=== PATIENT | male | born 1950 | race Caucasian/White ===

== ENCOUNTER 2019-02-17 11:00 | Outpatient (RCR) | payer OTHER, SELFPAY ==
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
--- NOTE | 2019-02-17 12:10 | HP.OTDCSUM ---
HP - OT D/C Summary It has been my pleasure to treat СВЕТЛАНА BARBOSA under orders from HARI CULLEN, for the diagnosis of SCI for a total of 5 visit(s). Please see the following information for a summary of their discharge status. - Objective Objective/Function: pt able to verbalize where his center of gravity is therapist assisted pt to his COG but unalble to maintain- losses COG >5 sec. with abdominal binder on. unable to flex forward and could iniate to side lean to left and min extension. (with spinal stroke pt able to initiate greater back ext.) pt required total assist to stop motion and right self. unable to initiate motion to right or left at this time. Pt dependent for functional tsf with sliding board. pt sliding board tsf of 3 for safety. pt able to sit at EOB 25min with Min A for static balance and MOD assist to correct LOB. pts forward balance MAX assist for correct balance. - Goals Patient Goals: Regain Mobility Goal:: PT will demo a increase in right Biceps 3+/5 to increase assist with mobility and ADLS by d/c Goal:: PT will demo a increase in right UE shoulder flex by 40* to increase ind with W/C gigi stick by d/c Goal:: pt will report a decrease in pain of left clavical region to less than 3/10 by d/c Goal:: pt will demo a increase in right IF/thumb mobility to ind place fingers around gigi stick for W/C mobility by d/c Goal:: pt will demo good shoulder flex to work gigi stick with w/c to guide w/c FAMILIA by d/c - Plan Plan: D/C - D/C Information Discharge Comments: [facility] following SCI- pt d/c at this time. If there are questions or concerns regarding this patient's occupational therapy, please fell free to call me at [phone]. Thank you for the referral of this patient. Sincerely, Candy Shaikh, OTR/L, CHT
--- NOTE | 2019-02-17 12:15 | HP.PTDCSUM ---
HP - PT D/C Summary It has been my pleasure to treat СВЕТЛАНА BARBOSA under orders from HARI CULLEN, for the diagnosis of SCI C3 Quadriplegia for a total of 5 visit(s). Discharge Date: 02/17/19 Please see the following information for a summary of their discharge status. - Subjective Subjective: reports that they got into an outpatient SCI rehab center and will be transfering care there. - Objective Objective/Function: transfer from wheel chair to mat table going down hill with dependent X 3 to mat table. Pt had some initiation of IR of the R leg and was able to elicit some hip add on the L side. Some active DF/PF on the L and none on the R. R LAQ once off the floor was able to do approx 5 in small range and then fatigue set in in a very minimal range. - Goals Goal 1:: Family to help pt initiate a stretching and strengthening/positioning routine at home Goal Progress: Goal Met Goal 2:: Sit on edge of mat with feet on the floor for 30 seconds unsuported with SBA X2 Goal Progress: Progressing Goal 3:: Be able to complete 3 X 20 LAQ ishan the L to improve LE muscle tone Goal Progress: Progressing Goal 4:: Be able to sit up straight on edge of mat table with neck in neutral position out of the brace when able per MD Goal 5:: Maintain B ankle AROM teresa DF to neutral - Plan Plan: 2-3 X/ week to work on sitting and gaining center of gravity, transfers with a slide boad, PROM LE's and UE's and some strengthening with tapping as able. - D/C Information Discharge Comments: DC PT to SCI Rehab program If there are questions or concerns regarding this patient's physical therapy, please feel free to call me at [phone]. Thank you for the referral of this patient. Sincerely, Radha Pina, MPT
== END 2019-02-17 19:00 | disposition home or self-care (01) ==
LOC: PT 11:00
PROVIDERS: Family Provider Preventive Medicine Occupational Medicine; PCP Preventive Medicine Occupational Medicine
DX: G82.50 Quadriplegia, unspecified (principal); M43.22 Fusion of spine, cervical region; S12.9XXD Fracture of neck, unspecified, subsequent encounter; M48.02 Spinal stenosis, cervical region; M54.2 Cervicalgia; M62.838 Other muscle spasm; I95.9 Hypotension, unspecified; R00.1 Bradycardia, unspecified; N31.9 Neuromuscular dysfunction of bladder, unspecified; R57.8 Other shock; G95.20 Unspecified cord compression; R26.9 Unspecified abnormalities of gait and mobility; E03.9 Hypothyroidism, unspecified
CPT/HCPCS: 97110; 97163; 97167; 97530

== ENCOUNTER 2020-11-22 10:05 | Day surgery (SDC) | payer MEDICARE, BC, SELFPAY ==
[2020-11-22 10:48] VITALS: BP 137/91; PULSE 51; RESP 18; TEMP 36.7; O2SAT 97; BMI 29.0
[2020-11-22] MEDS: Lactated Ringers 1,000 ML 100 ML IV (11:01)
--- NOTE | 2020-11-22 11:20 | RAD_ITS ---
PROCEDURE: Cervical epidural. DATE OF EXAMINATION: 11/22/2020. INDICATION: Male, 70 years old. Chronic neck pain. FLUOROSCOPY TIME (if supplied): (6 seconds) minutes/seconds. 4 images were obtained. RAD/Spine 1 View Any Level IMPRESSION: Intraoperative imaging provided for C7-T1 epidural injection. Electronically Signed: Martínez Torres MD at 15:58 EDT , Service support ,
[2020-11-22] MEDS: MethylPREDNISolone Acetate 80 MG/ML Vial (11:35)
[2020-11-22 11:48] VITALS: BP 127/79; BP 137/91; PULSE 50; RESP 16; TEMP 35.9; O2SAT 97
[2020-11-22 12:22] VITALS: BP 137/91
--- NOTE | 2020-11-22 15:31 | OP.PCM_ITS ---
Report of Operation Date of Procedure: 11/22/20 Description of Surgical Findings:: PREOPERATIVE DIAGNOSES: Cervical radiculopathy, cervical degenerative disc disease, cervical spinal stenosis POSTOPERATIVE DIAGNOSES: Cervical radiculopathy, cervical degenerative disc disease, cervical spinal stenosis PROCEDURE PERFORMED: Cervical epidural steroid injection, interlaminar at C7-T1 under fluoroscopic guidance. ANESTHESIA: Local. BLOOD LOSS: Minimal. COMPLICATIONS: None. DESCRIPTION OF PROCEDURE: History and physical of today was reviewed. Risks and benefits of the procedure were explained. The patient understood and agreed to proceed. Informed consent was obtained. IV inserted per routine protocol. The patient was taken to the operating room and placed in the prone position with a pillow positioned underneath the chest. The neck area was prepped and draped in a sterile fashion using iodine x3. Under fluoroscopy guidance on an AP view, the C7-T1 interlaminar space was identified. The skin and subcutaneous tissue was anesthetized with approximately 3 mL of 1% lidocaine using a 25-gauge regular needle. Under direct visualization on fluoroscopy, on AP view, using a 20-gauge 2-1/2-inch Tuohy needle, the needle was advanced via the skin. The tip of the needle was maneuvered and directed towards the interlaminar space at C7- T1. Loss of resistance technique was carried to air. Loss of resistance technique was encountered. Once encountered, after negative aspiration for blood and CSF, a total of 1 mL of contrast was injected to confirm correct placement of the needle as well as cephalocaudal spread of the contrast. Confirmation was obtained on AP as well as lateral view. After repeated negative aspiration and confirmation, a total of 3 mL of preservative-free normal saline and 80 mg of Depo-Medrol was injected easily. The needle was then removed intact. The patient experienced no sign or symptoms of intrathecal or intravascular injection. The patient experienced no paresthesia. The procedure was completed without any apparent difficulty or any complications. The patient appeared to tolerate it well. ASSESSMENT AND PLAN: This is a 70-year-old male with cervical radiculopathy, cervical degenerative disc disease, cervical spinal stenosis status post cervical epidural steroid injection interlaminar at C7-T1 under fluoroscopic guidance, patient will continue his current medications, patient will follow in approximately 2 weeks for reevaluation.
== END 2020-11-22 12:23 | disposition home or self-care (01) ==
LOC: SDC 10:10 → AC 10:16
PROVIDERS: PCP Student in an Organized Health Care Education/Training Program; Referring Provider Anesthesiology Pain Medicine; Visit Provider Anesthesiology Pain Medicine
PROC: 3E0S3BZ Introduction of Anesthetic Agent into Epidural Space, Percutaneous Approach (ICD-10-PCS; CPT 62320; principal; 2020-11-22 11:45)
DX: M50.123 Cervical disc disorder at C6-C7 level with radiculopathy (principal); M48.02 Spinal stenosis, cervical region; G89.29 Other chronic pain; G82.50 Quadriplegia, unspecified; E78.5 Hyperlipidemia, unspecified; E03.9 Hypothyroidism, unspecified; Z79.01 Long term (current) use of anticoagulants; Z79.899 Other long term (current) drug therapy
CPT/HCPCS: 62321; 64490; 72020; J7120

== ENCOUNTER 2020-12-20 07:23 | Day surgery (SDC) | payer MEDICARE, BC, SELFPAY ==
[2020-12-20 07:56] VITALS: BP 128/83; PULSE 57; RESP 16; TEMP 36.2; O2SAT 98; BMI 34.9
[2020-12-20] MEDS: Lactated Ringers 1,000 ML 100 ML IV (08:05)
--- NOTE | 2020-12-20 08:29 | OP.PCM_ITS ---
Report of Operation Date of Procedure: 12/20/20 Description of Surgical Findings:: PREOPERATIVE DIAGNOSES: Cervical radiculopathy, cervical degenerative disc disease, cervical spinal stenosis POSTOPERATIVE DIAGNOSES: Cervical radiculopathy, cervical degenerative disc disease, cervical spinal stenosis PROCEDURE PERFORMED: Cervical epidural steroid injection, interlaminar at C7-T1 under fluoroscopic guidance. ANESTHESIA: Local. BLOOD LOSS: Minimal. COMPLICATIONS: None. DESCRIPTION OF PROCEDURE: History and physical of today was reviewed. Risks and benefits of the procedure were explained. The patient understood and agreed to proceed. Informed consent was obtained. IV inserted per routine protocol. The patient was taken to the operating room and placed in the prone position with a pillow positioned underneath the chest. The neck area was prepped and draped in a sterile fashion using iodine x3. Under fluoroscopy guidance on an AP view, the C7-T1 interlaminar space was identified. The skin and subcutaneous tissue was anesthetized with approximately 3 mL of 1% lidocaine using a 25-gauge regular needle. Under direct visualization on fluoroscopy, on AP view, using a 20-gauge 2-1/2-inch Tuohy needle, the needle was advanced via the skin. The tip of the needle was maneuvered and directed towards the interlaminar space at C7- T1. Loss of resistance technique was carried to air. Loss of resistance technique was encountered. Once encountered, after negative aspiration for blood and CSF, a total of 1 mL of contrast was injected to confirm correct placement of the needle as well as cephalocaudal spread of the contrast. Confirmation was obtained on AP as well as lateral view. After repeated negative aspiration and confirmation, a total of 3 mL of preservative-free normal saline and 80 mg of Depo-Medrol was injected easily. The needle was then removed intact. The patient experienced no sign or symptoms of intrathecal or intravascular injection. The patient experienced no paresthesia. The procedure was completed without any apparent difficulty or any complications. The patient appeared to tolerate it well. ASSESSMENT AND PLAN: This is a 70-year-old male with cervical radiculopathy, cervical degenerative disc disease, cervical spinal stenosis status post cervical epidural steroid injection interlaminar at C7-T1 under fluoroscopic guidance, patient will continue his current medications, patient will follow in approximately 2 weeks for reevaluation.
--- NOTE | 2020-12-20 08:37 | RAD_ITS ---
PROCEDURE: C7-T1 cervical epidural injection. DATE OF EXAMINATION: 12/20/2020. INDICATION: Male, 70 years old. Chronic neck pain. FLUOROSCOPY TIME (if supplied): (10 seconds) minutes/seconds. 2 images were submitted. Intraoperative imaging provided for C7-T1 epidural injection. RAD/Spine 1 View Any Level IMPRESSION: Intraoperative imaging provided for C7-T1 epidural injection. Electronically Signed: Martínez Torres MD at 9:40 EDT , Service support ,
[2020-12-20] MEDS: MethylPREDNISolone Acetate 40 MG/ML Vial IM ×2 (08:41)
[2020-12-20 09:00] VITALS: BP 114/70; PULSE 51; RESP 16; TEMP 35.8; O2SAT 99
== END 2020-12-20 09:20 | disposition home or self-care (01) ==
LOC: SDC 07:25 → AC 07:25
PROVIDERS: PCP Student in an Organized Health Care Education/Training Program; Referring Provider Anesthesiology Pain Medicine; Visit Provider Anesthesiology Pain Medicine
PROC: 3E0S3BZ Introduction of Anesthetic Agent into Epidural Space, Percutaneous Approach (ICD-10-PCS; CPT 62320; principal; 2020-12-20 09:05)
DX: M50.123 Cervical disc disorder at C6-C7 level with radiculopathy (principal); M48.02 Spinal stenosis, cervical region; G89.29 Other chronic pain; E78.5 Hyperlipidemia, unspecified; E03.9 Hypothyroidism, unspecified; G82.50 Quadriplegia, unspecified; Z79.01 Long term (current) use of anticoagulants; Z79.899 Other long term (current) drug therapy
CPT/HCPCS: 62321; 64490; 72020; J7120

== ENCOUNTER 2021-01-17 07:14 | Day surgery (SDC) | payer MEDICARE, BC, SELFPAY ==
[2021-01-17 08:07] VITALS: BP 127/71; PULSE 54; RESP 16; TEMP 36.3; O2SAT 95; BMI 34.2
[2021-01-17] MEDS: Lactated Ringers 1,000 ML 100 ML IV (08:25)
--- NOTE | 2021-01-17 08:54 | RAD_ITS ---
STUDY: X-RAY - CERVICAL SPINE REASON FOR EXAM: Male, 70 years old. MEDIAL BRANCH BLOCK, C4-C7, LEFT TECHNIQUE: 5 view(s) of the cervical spine were obtained. COMPARISON: None FINDINGS: Intraoperative images are provided for left C4-C7 medial branch block. RAD/Cerv Spine 2 or 3 Views IMPRESSION: Intraoperative imaging provided for left C4-C7 medial branch block. Electronically Signed: Martínez Torres MD at 14:27 EST , Service support ,
[2021-01-17] MEDS: MethylPREDNISolone Acetate 80 MG/ML Vial (09:00)
[2021-01-17] MEDS: Bupivacaine 0.25% 30 ML Vial (09:00)
[2021-01-17 09:10] VITALS: BP 111/66; BP 127/71; PULSE 50; RESP 16; TEMP 35.8; O2SAT 95
[2021-01-17 09:15] VITALS: BP 127/71; BP 95/76; PULSE 49; RESP 16; O2SAT 92
[2021-01-17 09:20] VITALS: BP 101/61; BP 127/71; PULSE 46; RESP 16; O2SAT 94
[2021-01-17 09:27] VITALS: BP 110/66; BP 127/71; PULSE 49; RESP 16; TEMP 35.9; O2SAT 94
[2021-01-17 09:52] VITALS: BP 127/71
--- NOTE | 2021-01-17 13:00 | OP.PCM_ITS ---
Report of Operation Description of Surgical Findings:: Date of Procedure: 01/17/21 Pre-Operative Diagnosis: Cervical spondylosis, cervical degenerative disc disease, cervical facet arthropathy Post-Operative Diagnosis: Cervical spondylosis, cervical degenerative disc disease, cervical facet arthropathy Surgery/Procedure Performed:: Left sided cervical facet steroid injection, C4, C5, C6, and C7. Type of Anesthesia: MAC Estimated Blood Loss (mL): Minimal Description of Procedure: DESCRIPTION OF PROCEDURE: History and physical of zohaib vera was reviewed. Risks and benefits of the procedure were explained. The patient understood and agreed to proceed. Informed consent was obtained. IV inserted per routine protocol. The patient was taken to the operating room and placed in the prone position with a pillow positioned underneath the chest. The neck area was prepped and draped in a sterile fashion using iodine x3. Under fluoroscopy guidance on an AP view, the C4 through C7 vertebral bodies were visualized at approximately 10-degree angle, starting on the left C4, ending on the left C7, passing through the C5 and C6. Using a 25-gauge 3-1/2-inch spinal needle, the needle was advanced via the skin. The tip of the needle was maneuvered and directed towards the epiphyseal junction of each corresponding vertebra. Once the tip of the needle was at the vicinity of the medial branch, the needle was pulled approximately 2 mm off the bone. After negative aspiration of blood or CSF and confirmation on AP, oblique as well as lateral view, a total of 4 mL of preservative-free 0.25% Marcaine with 80 mg of Depo- Medrol was injected in divided doses between those four levels. The needles were then removed intact. The patient experienced no sign or symptoms of intrathecal or intravascular injection. The patient experienced no paresthesia. The procedure was completed without any apparent difficulty or any complications. The patient appeared to tolerate it well. ASSESSMENT AND PLAN: This is a 70-year-old male with cervical spondylosis, cervical degenerative disc disease, cervical facet arthropathy status post left-sided cervical facet steroid injection C4-C7, patient will continue his current medications, patient will follow in approximately 2 weeks for reevaluation. Complications None
== END 2021-01-17 10:24 | disposition home or self-care (01) ==
LOC: SDC 07:16 → AC 07:16
PROVIDERS: PCP Student in an Organized Health Care Education/Training Program; Referring Provider Anesthesiology Pain Medicine; Visit Provider Anesthesiology Pain Medicine
PROC: 3E0U3BZ Introduction of Anesthetic Agent into Joints, Percutaneous Approach (ICD-10-PCS; CPT 64490; principal; 2021-01-17 08:50)
DX: M47.812 Spondylosis without myelopathy or radiculopathy, cervical region (principal); M50.121 Cervical disc disorder at C4-C5 level with radiculopathy; M46.92 Unspecified inflammatory spondylopathy, cervical region; M96.1 Postlaminectomy syndrome, not elsewhere classified; K21.9 Gastro-esophageal reflux disease without esophagitis; E78.5 Hyperlipidemia, unspecified; E03.9 Hypothyroidism, unspecified; G82.50 Quadriplegia, unspecified; Z79.01 Long term (current) use of anticoagulants; Z79.899 Other long term (current) drug therapy
CPT/HCPCS: 01992; 64491; 64492; 64490; 72040; J7120

== ENCOUNTER 2021-05-23 06:51 | Day surgery (SDC) | payer MEDICARE, BC, SELFPAY ==
--- NOTE | 2021-04-22 13:11 | PCM.HP.BLA ---
History and Physical Date of Admission: 04/25/21 Chief Complaint: post in office injection in left decreased pain 50% for a couple hours History of Present Illness: This is a 70 Y/O Male who was seen and evaluated at our office today.He is accompanied by his today. Pain: bilateral shoulders ( left is worse), bilateral finger pads (intermittent) Quality: burning, pins and needles Region: bilateral shoulders with left being worse, bilateral finger pads Severity: constant varies in intensity Timin11/13/2018 Aggravated by: bouncing around in the van Relieved by: stretching out Pain score (out of 10): 06/12 Other info: Patient is here follow up post left shoulder in office injection decreased pain by 50% for a couple hours. States the pain continues in his bilateral shoulders and biceps. States his left shoulder hurts worse. Pain is constant but varies some in intensity and is a burning pain in left shoulder and down left arm. Review of Systems: Reports: spinal trauma. Patient denies any recent fever, chills, headache, change in weight without trying, vision or hearing problems. No cp, sob, beyer, pnd, orthopnea, or peripheral edema.They note no lumps or swollen glands, no new rashes, changing moles, or change in bowel or bladder function. No melena or BRBPR. Mood has been good and overall doing well. Past Medical History: h/o acute kidney injury h/o Basal cell carcinoma h/o brain aneurysm h/o cervical spine fx h/o chalazion-right lower eyelid h/o depression h/o thrombosis h/o edema h/o rosacea h/o Quadriplegia h/o obstructive sleep apnea h/o neuralgia h/o insomnia h/o hyperlipidemia h/o hypothyroid s/p adenoidectomy s/p tonsillectomy s/p laminectomy s/p Cholecystectomy s/p knee arthroscopy s/p femoral stents s/p total knee replacement s/p finger surgery Family History: ======== Structured Family History ======== Father: Alzheimer's disease, Cancer Grandparent: Myocardial infarction, Diabetes mellitus Social History: [Tobacco: Never smoker Pipe Smoker: No Cigar Smoker: No Chewing Tobacco User: No Electronic Cigarette User: No] Living situation: Occupation: Retired Tobacco: Denies EtOH: Rarely Rec. drugs: Denies Allergies: No Known Allergies Medications: 1) Acidophilus Probiotic Blend oral capsule, Take 1 tablet by mouth once daily 2) amitriptyline 50 mg oral tablet, Take 1 tablet by mouth once daily 3) baclofen 10 mg oral tablet, 1 PO TID 4) Eliquis 5 mg oral tablet, Take 1 tablet by mouth 2 times a Day 5) levothyroxine 125 mcg (0.125 mg) oral tablet, Take 1 tablet by mouth every morning 6) Lyrica 50 mg oral capsule, Take 1 capsule po qhs 7) Melatonin 10 mg oral tablet, Take 1 tablet by mouth every evening 8) milk of magnesia 30ml 9) MiraLax oral powder for reconstitution, daily 10) pantoprazole 40 mg oral delayed release tablet, Take 1 tablet by mouth once daily 11) senokot , Take 1 tablet by mouth 2 times a Day 12) VESIcare 5 mg oral tablet, Take 1 tablet by mouth once daily 13) Xray of the cervical spine, AP/Lat./Obliq./Flex./Ext. Physical Examination: Ht/Ln: 73 in BP: 80/49 Pulse: 49 RR: 16 Temp: 97.8F Pain: 3 Well nourished and well developed in no acute distress. Affect is normal and appropriate. Mucosa pink and moist. Chest is unlabored breathing, pt is alert and oriented to place, person and time. Neck is supple without significant lymphadenopathy or thyromegaly. Abdomen soft & non-tender. No HSM or masses appreciated. Extremities show no cyanosis, clubbing, or edema. Pt in a motorized wheelchair Upper extremity movement limited. Bilateral cervical facet challenge is positive. Cervical paraspinal muscle tenderness. Cervical ROM is limited due to pain. ROM of the left shoulder is severely limited due to pain. Motor and sensory exam is unchanged. 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 (Transmitted by MAXIMINO CASTANON NP) Continue with his current medications. OARRS was reviewed today. Discussed SCS educational info was given Discussed a baclofen pump, will attempt to hold off for now until pain is better controlled. UDS was reviewed, SOAPP score is 0 Xray of the cervical spine and bilateral shoulders was reviewed with the pt today and they appear to understand Reviewed with the pt today our opioid agreement and they appear to understand. PEG was reviewed today. Pt was advised not to consume alcohol with his medications due to possible severe interaction, pt appears to understand. The pt has been counseled on safe storage and disposal of opioids. Weight loss was recommended today through diet and exercise. There are no signs of diversion or addiction with the pt, there is also no signs of abuse or misuse, continues to do well with their medications without any side effects, we will continue monitoring the pt closely. Risks and benefits of the above meds were discussed with the pt and they appear to understand. The common side effects of the medications were discussed and all of their questions and concerns were answered and they appear to understand Discussed natural and expected course of this diagnosis and need to alert me if symptoms do not follow expected course, or if any worse. Pt is to continue with his PT and HEP. Pt has tried multiple modalities with no success, we will schedule the pt for a diagnostic left cervical medial branch nerve block C4-C7 under fluoroscopy We have discussed the risks, benefits as well as alternatives of the procedure and the patient appears to understand and would like to proceed with the above plan. The above plan was discussed today with the pt and his in details and they appear to understand and agrees to continue with the plan.
[2021-05-23 07:38] VITALS: BP 84/55; PULSE 50; RESP 16; TEMP 37.3; O2SAT 93; BMI 33.9
[2021-05-23] MEDS: Lactated Ringers 500 ML 999 ML IV (07:45)
--- NOTE | 2021-05-23 08:15 | RAD_ITS ---
HISTORY: MEDIAL BRANCH NERVE BLOCK, C4-C7, LEFT. TECHNIQUE: XR Spine Cervical 4 or 5 Views. Spot images: 4. Number of images including paperwork: 5. COMPARISON: None. FINDINGS: OSSEOUS STRUCTURES: Fluoroscopic guidance provided for medial branch nerve block C4-C7. RAD/Cerv Spine 4 or 5 Views IMPRESSION: Fluoroscopic guidance provided for medial branch nerve block. Please refer to procedure note. at 0946 Reported and signed by: Geneva Mahoney MD Electronically Signed: Geneva Mahoney MD at 9:45 EDT ,
[2021-05-23] MEDS: MethylPREDNISolone Acetate 80 MG/ML Vial (08:21)
[2021-05-23] MEDS: Bupivacaine 0.25% 30 ML Vial (08:21)
[2021-05-23 08:30] VITALS: BP 113/67; BP 84/55; PULSE 51; RESP 14; TEMP 36.8; O2SAT 94
[2021-05-23 08:35] VITALS: BP 84/55; BP 94/59; PULSE 48; RESP 14; O2SAT 93
[2021-05-23 08:40] VITALS: BP 84/55; BP 93/59; PULSE 47; RESP 14; O2SAT 92
[2021-05-23 08:44] VITALS: BP 84/55; BP 96/61; PULSE 47; RESP 14; TEMP 36.6; O2SAT 92
[2021-05-23 08:56] VITALS: BP 84/55
--- NOTE | 2021-05-23 15:55 | OP.PCM_ITS ---
Report of Operation Date of Procedure: 05/23/21 Description of Surgical Findings:: PROCEDURE: Left-sided cervical medial branch block at C4, C5, C6, C7 PREOPERATIVE DIAGNOSES: Cervical spondylosis, cervical degenerative disc disease, and cervical facet arthropathy POSTOPERATIVE DIAGNOSES: Cervical spondylosis, cervical degenerative disc disease, and cervical facet arthropathy ANESTHESIA: MAC COMPLICATIONS: None BLOOD LOSS: Minimal PROCEDURE IN DETAIL: History and physical today was reviewed. Risks and benefits of the procedure were explained. The patient understood, agreed to our procedure, and informed consent was obtained. IV inserted per routine protocol. The patient was taken to the operating room, placed in a prone position with a pillow positioned underneath the chest. The neck area was prepped and draped in a sterile fashion using iodine x3. Under fluoroscopy guidance, on AP view, C4 through C7 vertebral bodies were visualized. Skin and subcutaneous tissues were anesthetized with approximately 10 mL of 1% lidocaine using a 25- gauge regular needle. Under direct visualization with fluoroscopy at approximately 15-degree angle, starting on the left C4, ending on the left C7, passing through the C5-C6 using a 25-gauge 3-1/2 inch spinal needle the needle was advanced via the skin the tip of the needle's maneuver and directed towards the medial branch in the lateral aspect of the facet joints at each corresponding level once the tip of the needle was at the vicinity of the medial branch and in contact with the bone the needle pulled approximately 2 mm of the bone after negative aspiration for blood or CSF a total of 3 mL of preservative-free 0.25% Marcaine with 40 mg Depo-M edrol wasinjected in divided doses between those 4 levels. The needles were then removed intact. The patient experienced no signs or symptoms of intrathecal, intravascular injection. The patient experienced no paraesthesia. The procedure was completed without any apparent difficulty, any complication. The patient appeared to tolerate well. Sensory as well as motor exam was unchanged from prior to procedure. ASSESSMENT AND PLAN: This is a 70-year-old Male with cervical spondylosis, cervical degenerative disc disease, and cervical facet arthropathy, status post left-sided cervical medial branch block at C4-C7. The patient will continue his current medications. The patient will follow up in approximately 1-2 weeks fo reevaluation.
== END 2021-05-23 23:59 | disposition home or self-care (01) ==
LOC: SDC 06:53 → AC 06:54
PROVIDERS: PCP Student in an Organized Health Care Education/Training Program; Referring Provider Anesthesiology Pain Medicine; Visit Provider Anesthesiology Pain Medicine
PROC: 3E0U3BZ Introduction of Anesthetic Agent into Joints, Percutaneous Approach (ICD-10-PCS; CPT 64490; principal; 2021-05-23 08:05)
DX: M47.812 Spondylosis without myelopathy or radiculopathy, cervical region (principal); G82.50 Quadriplegia, unspecified; M46.92 Unspecified inflammatory spondylopathy, cervical region; M50.30 Other cervical disc degeneration, unspecified cervical region; M62.838 Other muscle spasm; M96.1 Postlaminectomy syndrome, not elsewhere classified; E78.5 Hyperlipidemia, unspecified; E03.9 Hypothyroidism, unspecified; G47.33 Obstructive sleep apnea (adult) (pediatric); Z79.899 Other long term (current) drug therapy
CPT/HCPCS: 64491; 01992; 64490; 72040; 72050; J7120

== ENCOUNTER 2021-06-20 05:40 | Day surgery (SDC) | payer MEDICARE, BC, SELFPAY ==
[2021-06-20 06:27] VITALS: BP 103/55; PULSE 48; RESP 18; TEMP 36.6; O2SAT 94; BMI 35.8
[2021-06-20] MEDS: Lactated Ringers 1,000 ML 15 ML IV (06:35)
--- NOTE | 2021-06-20 07:35 | RAD_ITS ---
INDICATION: RADIO FREQ ABLATION C4-7 LEFT EXAMINATION/TECHNIQUE: X-RAY - XR Spine Cervical 4 or 5 Views COMPARISON: 05/23/2021. Fluoroscopy: 4.82 mGy FINDINGS: 9 spot fluoroscopic images were obtained intraoperatively. Images demonstrate needle placement along the cervical spine for radiofrequency ablation. No radiologist was available for the procedure, please refer to operative report for details. RAD/Cerv Spine 4 or 5 Views IMPRESSION: Please refer to operative report for details. Electronically Signed: James Kim MD at 9:08 EDT ,
[2021-06-20] MEDS: MethylPREDNISolone Acetate 40 MG/ML Vial IM (07:50)
[2021-06-20] MEDS: Lidocaine 1% (5 ml sdv) 5 ML Vial (07:51)
[2021-06-20] MEDS: Bupivacaine 0.25% 30 ML Vial (07:51)
[2021-06-20 08:06] VITALS: BP 103/55; BP 98/67; PULSE 48; RESP 14; TEMP 36.4; O2SAT 97
[2021-06-20 08:10] VITALS: BP 103/55; BP 93/63; PULSE 51; RESP 14; O2SAT 95
[2021-06-20 08:15] VITALS: BP 103/55; BP 104/71; PULSE 51; RESP 16; O2SAT 95
[2021-06-20 08:21] VITALS: BP 103/55; BP 84/56; PULSE 52; RESP 16; TEMP 36.2; O2SAT 95
[2021-06-20 08:37] VITALS: BP 103/55
--- NOTE | 2021-06-20 09:08 | PCM.OPRPT ---
Report of Operation Date of Procedure: 06/20/21 Description of Surgical Findings:: PREOPERATIVE DIAGNOSIS: Cervical spondylosis, cervical degenerative disc disease, cervical facet arthropathy POSTOPERATIVE DIAGNOSIS: Cervical spondylosis, cervical degenerative disc disease, cervical facet arthropathy PROCEDURE PERFORMED: Left-sided radiofrequency ablation of the medial branch at C4, C5, C6, and C7. ANESTHESIA: MAC. BLOOD LOSS: Minimal. COMPLICATIONS: None. DESCRIPTION OF PROCEDURE: History and physical of today was reviewed. Risks and benefits of the procedure were explained. The patient understood and agreed to proceed. Informed consent was obtained. IV inserted per routine protocol. The patient was taken to the operating room and placed in the prone position with a pillow positioned underneath the chest. The neck area was prepped and draped in a sterile fashion using iodine x3. Under fluoroscopy guidance on an AP view, the C4 through C7 vertebral bodies were visualized. The skin and subcutaneous tissue was anesthetized with approximately 10 mL of 1% lidocaine using a 25-gauge regular needle. Under direct visualization on fluoroscopy on a lateral view, using a 21-gauge 10-cm with a 10-mm curved active-tip radiofrequency ablation needle, the needle was passed through the skin. The tip of the needle was maneuvered and directed towards the epiphyseal junction of each corresponding vertebra, starting on the left C4, ending on the left C7, passing through the C5 and C6. Once the tip of the needle was at the vicinity of the medial branch and at the middle of the trapezoid on the lateral view, the stylette of each needle was then removed. After negative aspiration of blood or CSF and confirmation on AP, oblique as well as lateral view, radiofrequency ablation probe was then inserted at each level. Impedance was then recorded at C4 to be 341 ohm, at C5 to be 285 ohm, at C6 to be 238 ohm, and at C7 to be 227 ohm. Motor-evoked potential was then initiated to 1.5 volt without any motor response to each corresponding level or the left arm. The probe was then removed intact and a total of 4 mL of preservative-free 1% lidocaine was injected in divided doses between those four levels after negative aspiration of blood or CSF. After repeated confirmation, the radiofrequency ablation probe was then inserted and after repeated confirmation on AP, oblique as well as lateral view, radiofrequency ablation was then initiated to approximately 80 degree Celsius for 60 second at each level. Once concluded, the probe was then removed intact. A total of 4 mL of preservative-free 0.25% Marcaine with 40 mg of Depo-Medrol was injected in divided doses between those four levels. The needles were then removed intact. The patient experienced no sign or symptoms of intrathecal or intravascular injection. The patient experienced no paresthesia. The procedure was completed without any apparent difficulty or any complications. The patient appeared to tolerate it well. Sensory as well as motor exam was unchanged from prior to the procedure. ASSESSMENT AND PLAN: This is a 70-year-old male with cervical spondylosis, cervical degenerative disc disease, cervical facet arthropathy, status post left-sided cervical radiofrequency ablation of the medial branch C4?through C7 patient will continue his current medications, patient will follow in approximately 2 weeks for reevaluation.
== END 2021-06-20 09:12 | disposition home or self-care (01) ==
LOC: SDC 05:42 → AC 05:45
PROVIDERS: PCP Student in an Organized Health Care Education/Training Program; Referring Provider Anesthesiology Pain Medicine; Visit Provider Anesthesiology Pain Medicine
PROC: (CPT 64633; principal; 2021-06-20 07:15)
DX: M47.812 Spondylosis without myelopathy or radiculopathy, cervical region (principal); G82.50 Quadriplegia, unspecified; M46.92 Unspecified inflammatory spondylopathy, cervical region; M50.30 Other cervical disc degeneration, unspecified cervical region; M96.1 Postlaminectomy syndrome, not elsewhere classified; E03.9 Hypothyroidism, unspecified; Z79.01 Long term (current) use of anticoagulants; Z79.899 Other long term (current) drug therapy
CPT/HCPCS: 64633; 64634 ×2; 01992; 72050; 76000; J7120